=== PATIENT | female | born 1970 | race Asian ===

== ENCOUNTER 2017-08-27 09:47 | Emergency (ER) | payer OTHER | END 2017-08-27 11:15 | disposition home or self-care (01) | LOC: E/R 09:47 | DX: R19.7 Diarrhea, unspecified (principal); R05 Cough; I10 Essential (primary) hypertension; E11.9 Type 2 diabetes mellitus without complications; Z79.84 Long term (current) use of oral hypoglycemic drugs | CPT/HCPCS: 99284; Z7502 ==

== ENCOUNTER 2018-01-15 08:54 | Emergency (ER) | payer OTHER ==
[2018-01-15 09:49] LABS: ADD MAN DIFF? NO
[2018-01-15 09:50] LABS: BASOPHILS % 0.2 % (0.0-2.0); EOSINOPHILS # 0.3 10^3/ul (0.0-0.5); EOSINOPHILS % 2.3 % (0.0-7.0); HEMATOCRIT 35.1 % (37.0-47.0); HEMOGLOBIN 11.6 g/dl (12.0-16.0); LYMPHOCYTES # 3.7 10^3/ul (0.8-2.9); LYMPHOCYTES % 33.7 % (15.0-51.0); MEAN CORPUSCULAR HEMOGLOBIN 27.2 pg (29.0-33.0); MEAN CORPUSCULAR VOLUME 82.4 fl (82.0-101.0); MEAN PLATELET VOLUME 12.2 fl (7.4-10.4); MONOCYTE # 0.9 10^3/ul (0.3-0.9); MONOCYTES % 8.2 % (0.0-11.0); NEUTROPHIL # 6.1 10^3/ul (1.6-7.5); NEUTROPHILS % 55.2 % (39.0-77.0); PLATELET COUNT 297 10^3/UL (140-415); RED BLOOD COUNT 4.26 10^6/ul (4.20-5.40); RED CELL DISTRIBUTION WIDTH 13.9 % (11.5-14.5)
[2018-01-15] MEDS: SOD CHLORIDE 0.9% 1,000 ML IV (09:51)
[2018-01-15 09:58] LABS: ADD UMIC NO; UR ASCORBIC ACID NEGATIVE (NEGATIVE); UR BILIRUBIN (Dip) NEGATIVE (NEGATIVE); UR BLOOD (Dip) NEGATIVE (NEGATIVE); UR CLARITY CLEAR (CLEAR); UR COLOR STRAW (YELLOW); UR GLUCOSE (Dip) NEGATIVE (NEGATIVE); UR KETONES (Dip) NEGATIVE (NEGATIVE); UR LEUKOCYTE ESTERASE (Dip) NEGATIVE Leu/ul (NEGATIVE); UR NITRITE (Dip) NEGATIVE (NEGATIVE); UR SPECIFIC GRAVITY (Dip) 1.004 (1.003-1.030); UR TOTAL PROTEIN (Dip) NEGATIVE (NEGATIVE); UR UROBILINOGEN (Dip) NEGATIVE (NEGATIVE)
[2018-01-15 10:13] LABS: ALANINE AMINOTRANSFERASE 19 IU/L (13-69); ALBUMIN 4.3 g/dl (3.3-4.9); ALBUMIN/GLOBULIN RATIO 1.26; ALKALINE PHOSPHATASE 109 IU/L (42-121); ANION GAP 16 (8-16); ASPARTATE AMINO TRANSFERASE 23 IU/L (15-46); BILIRUBIN,INDIRECT 0.5 mg/dl (0-1.1); BILIRUBIN,TOTAL 0.5 mg/dl (0.2-1.3); BLOOD UREA NITROGEN 14 mg/dl (7-20); CALCIUM 9.3 mg/dl (8.4-10.2); CARBON DIOXIDE 26 mmol/L (21-31); CHLORIDE 95 mmol/L (97-110); CREATININE 0.79 mg/dl (0.44-1.00); GLUCOSE 164 mg/dl (70-220); LIPASE 103 U/L (23-300); POTASSIUM 3.9 mmol/L (3.5-5.1); SODIUM 133 mmol/L (135-144); TOTAL PROTEIN 7.7 g/dl (6.1-8.1)
[2018-01-15] MEDS: KETOROLAC 30 MG INJ IV (10:18)
[2018-01-15] MEDS: morphine 4 MG/ML VIAL IV (11:56)
[2018-01-15] MEDS: ONDANSETRON 4 MG INJ IV (11:56)
== END 2018-01-15 12:16 | disposition home or self-care (01) ==
LOC: FTE 08:54
DX: R10.9 Unspecified abdominal pain (principal); E11.9 Type 2 diabetes mellitus without complications; I10 Essential (primary) hypertension; R10.2 Pelvic and perineal pain; Z79.4 Long term (current) use of insulin
CPT/HCPCS: 36415; 74176; 80053; 81003; 83690; 84703; 85025; 96374; 96375; 99285-25

== ENCOUNTER 2018-08-10 10:46 | Emergency (ER) | payer OTHER ==
[2018-08-10 12:33] LABS: ADD MAN DIFF? NO
[2018-08-10 12:34] LABS: WHITE BLOOD COUNT 10.6 10^3/ul (4.8-10.8)
[2018-08-10 12:34] LABS: BASOPHILS % 0.2 % (0.0-2.0); EOSINOPHILS # 0.2 10^3/ul (0.0-0.5); EOSINOPHILS % 1.8 % (0.0-7.0); HEMATOCRIT 36.3 % (37.0-47.0); HEMOGLOBIN 11.7 g/dl (12.0-16.0); LYMPHOCYTES % 28.4 % (15.0-51.0); MEAN CORPUSCULAR HEMOGLOBIN 26.7 pg (29.0-33.0); MEAN CORPUSCULAR HGB CONC 32.2 g/dl (32.0-37.0); MEAN CORPUSCULAR VOLUME 82.9 fl (82.0-101.0); MEAN PLATELET VOLUME 11.7 fl (7.4-10.4); MONOCYTE # 0.7 10^3/ul (0.3-0.9); MONOCYTES % 6.8 % (0.0-11.0); NEUTROPHIL # 6.6 10^3/ul (1.6-7.5); NEUTROPHILS % 62.5 % (39.0-77.0); PLATELET COUNT 332 10^3/UL (140-415); RED BLOOD COUNT 4.38 10^6/ul (4.20-5.40); RED CELL DISTRIBUTION WIDTH 13.2 % (11.5-14.5)
[2018-08-10] MEDS: ONDANSETRON 4 MG INJ IV (12:41)
[2018-08-10] MEDS: KETOROLAC 30 MG INJ IV (12:41)
[2018-08-10] MEDS: SOD CHLORIDE 0.9% 1,000 ML IV (12:42)
[2018-08-10 12:45] LABS: ADD UMIC YES; UR ASCORBIC ACID NEGATIVE (NEGATIVE); UR BACTERIA FEW /HPF (NONE SEEN); UR BILIRUBIN (Dip) NEGATIVE (NEGATIVE); UR BLOOD (Dip) NEGATIVE (NEGATIVE); UR CLARITY CLEAR (CLEAR); UR COLOR COLORLESS (YELLOW); UR GLUCOSE (Dip) NEGATIVE (NEGATIVE); UR KETONES (Dip) NEGATIVE (NEGATIVE); UR LEUKOCYTE ESTERASE (Dip) TRACE Leu/ul (NEGATIVE); UR NITRITE (Dip) NEGATIVE (NEGATIVE); UR RBC 0 /HPF (0-5); UR SPECIFIC GRAVITY (Dip) 1.004 (1.003-1.030); UR TOTAL PROTEIN (Dip) NEGATIVE (NEGATIVE); UR UROBILINOGEN (Dip) NEGATIVE (NEGATIVE); UR WBC 1 /HPF (0-5)
[2018-08-10 12:53] LABS: ALANINE AMINOTRANSFERASE 18 IU/L (13-69); ALBUMIN 4.5 g/dl (3.3-4.9); ALBUMIN/GLOBULIN RATIO 1.15; ALKALINE PHOSPHATASE 124 IU/L (42-121); ANION GAP 11 (5-13); ASPARTATE AMINO TRANSFERASE 19 IU/L (15-46); BILIRUBIN,INDIRECT 0.4 mg/dl (0-1.1); BILIRUBIN,TOTAL 0.4 mg/dl (0.2-1.3); BLOOD UREA NITROGEN 21 mg/dl (7-20); CALCIUM 10.4 mg/dl (8.4-10.2); CARBON DIOXIDE 32 mmol/L (21-31); CHLORIDE 94 mmol/L (97-110); CREATININE 1.01 mg/dl (0.44-1.00); Estimated GFR 59 mL/min (>60); GLUCOSE 168 mg/dl (70-220); POTASSIUM 3.7 mmol/L (3.5-5.1); SODIUM 137 mmol/L (135-144); TOTAL PROTEIN 8.4 g/dl (6.1-8.1)
== END 2018-08-10 13:52 | disposition home or self-care (01) ==
LOC: FTE 10:46
DX: R51 Headache (principal); E11.9 Type 2 diabetes mellitus without complications; I10 Essential (primary) hypertension; Z79.84 Long term (current) use of oral hypoglycemic drugs
CPT/HCPCS: 70450; 80053; 81001; 81025; 85025; 96374; 96375; 99285-25

== ENCOUNTER 2018-10-21 17:56 | Emergency (ER) | payer OTHER ==
[2018-10-21 20:06] LABS: URINE BLOOD (Dip) POC Negative (NEGATIVE); URINE GLUCOSE (Dip) POC Negative (NEGATIVE); URINE KETONES (Dip) POC Negative (NEGATIVE); URINE LEUKOCYTE EST (Dip) POC Negative (NEGATIVE); URINE NITRITE (Dip) POC Negative (NEGATIVE); URINE TOTAL PROTEIN POC Negative (NEGATIVE)
[2018-10-21 20:06] LABS: URINE PH (Dip) POC 5.5 (5.0-8.5)
[2018-10-21] MEDS: NICARDipine HCL 30 MG CAPSULE PO (20:27)
[2018-10-21 20:38] LABS: ADD MAN DIFF? NO
[2018-10-21 20:39] LABS: BASOPHILS % 0.2 % (0.0-2.0); EOSINOPHILS # 0.2 10^3/ul (0.0-0.5); EOSINOPHILS % 1.7 % (0.0-7.0); HEMATOCRIT 32.7 % (37.0-47.0); HEMOGLOBIN 10.8 g/dl (12.0-16.0); LYMPHOCYTES # 4.4 10^3/ul (0.8-2.9); LYMPHOCYTES % 34.3 % (15.0-51.0); MEAN CORPUSCULAR HEMOGLOBIN 26.8 pg (29.0-33.0); MEAN CORPUSCULAR VOLUME 81.1 fl (82.0-101.0); MEAN PLATELET VOLUME 12.3 fl (7.4-10.4); MONOCYTE # 0.8 10^3/ul (0.3-0.9); MONOCYTES % 6.6 % (0.0-11.0); NEUTROPHIL # 7.2 10^3/ul (1.6-7.5); PLATELET COUNT 295 10^3/UL (140-415); RED BLOOD COUNT 4.03 10^6/ul (4.20-5.40); RED CELL DISTRIBUTION WIDTH 13.1 % (11.5-14.5)
[2018-10-21 20:39] LABS: WHITE BLOOD COUNT 12.7 10^3/ul (4.8-10.8)
[2018-10-21 20:58] LABS: PROTIME 11.2 Sec (11.9-14.9); PT RATIO 0.9
[2018-10-21 20:59] LABS: ALANINE AMINOTRANSFERASE 16 IU/L (13-69); ALBUMIN 4.6 g/dl (3.3-4.9); ALBUMIN/GLOBULIN RATIO 1.27; ALKALINE PHOSPHATASE 118 IU/L (42-121); ANION GAP 11 (5-13); ASPARTATE AMINO TRANSFERASE 20 IU/L (15-46); BILIRUBIN,INDIRECT 0.3 mg/dl (0-1.1); BILIRUBIN,TOTAL 0.3 mg/dl (0.2-1.3); BLOOD UREA NITROGEN 21 mg/dl (7-20); CALCIUM 10.1 mg/dl (8.4-10.2); CARBON DIOXIDE 28 mmol/L (21-31); CHLORIDE 89 mmol/L (97-110); CREATININE 1.17 mg/dl (0.44-1.00); Estimated GFR 49 mL/min (>60); GLUCOSE 208 mg/dl (70-220); POTASSIUM 3.7 mmol/L (3.5-5.1); SODIUM 128 mmol/L (135-144); TOTAL PROTEIN 8.2 g/dl (6.1-8.1)
[2018-10-21 21:10] LABS: TROPONIN-I < 0.012 ng/ml (0.000-0.120)
[2018-10-21 22:05] LABS: ADD UMIC NO; UR ASCORBIC ACID NEGATIVE (NEGATIVE); UR BILIRUBIN (Dip) NEGATIVE (NEGATIVE); UR BLOOD (Dip) NEGATIVE (NEGATIVE); UR CLARITY CLEAR (CLEAR); UR COLOR YELLOW (YELLOW); UR GLUCOSE (Dip) 1+ mg/dL (NEGATIVE); UR KETONES (Dip) NEGATIVE (NEGATIVE); UR LEUKOCYTE ESTERASE (Dip) NEGATIVE Leu/ul (NEGATIVE); UR NITRITE (Dip) NEGATIVE (NEGATIVE); UR SPECIFIC GRAVITY (Dip) 1.011 (1.003-1.030); UR TOTAL PROTEIN (Dip) NEGATIVE (NEGATIVE); UR UROBILINOGEN (Dip) NEGATIVE (NEGATIVE)
[2018-10-21] MEDS: SOD CHLORIDE 0.9% 1,000 ML IV (22:25)
== END 2018-10-21 23:55 | disposition home or self-care (01) ==
LOC: FTE 23:55
DX: E86.0 Dehydration (principal); I10 Essential (primary) hypertension; E11.9 Type 2 diabetes mellitus without complications; Z79.84 Long term (current) use of oral hypoglycemic drugs
CPT/HCPCS: 36415; 71046; 80053; 81003; 84484; 84703; 85025; 85610; 85730; 93005; 96360; 99285-25

== ENCOUNTER 2018-11-19 22:49 | Inpatient (IN) | payer OTHER ==
[2018-11-19 23:54] LABS: URINE BLOOD (Dip) POC Negative (NEGATIVE); URINE KETONES (Dip) POC Negative (NEGATIVE); URINE LEUKOCYTE EST (Dip) POC Negative (NEGATIVE); URINE NITRITE (Dip) POC Negative (NEGATIVE); URINE TOTAL PROTEIN POC Negative (NEGATIVE)
[2018-11-19] MEDS: PANTOPRAZOLE 40 MG INJ IV (23:54)
[2018-11-19 23:56] LABS: ADD MAN DIFF? NO
[2018-11-20] LABS: BASOPHILS % 0.2 % (0.0-2.0); EOSINOPHILS # 0.2 10^3/ul (0.0-0.5); EOSINOPHILS % 1.3 % (0.0-7.0); HEMATOCRIT 32.8 % (37.0-47.0); HEMOGLOBIN 10.6 g/dl (12.0-16.0); LYMPHOCYTES # 3.6 10^3/ul (0.8-2.9); LYMPHOCYTES % 30.2 % (15.0-51.0); MEAN CORPUSCULAR HEMOGLOBIN 26.6 pg (29.0-33.0); MEAN CORPUSCULAR HGB CONC 32.3 g/dl (32.0-37.0); MEAN CORPUSCULAR VOLUME 82.4 fl (82.0-101.0); MEAN PLATELET VOLUME 11.5 fl (7.4-10.4); MONOCYTES % 8.5 % (0.0-11.0); NEUTROPHILS % 59.5 % (39.0-77.0); PLATELET COUNT 364 10^3/UL (140-415); RED BLOOD COUNT 3.98 10^6/ul (4.20-5.40); RED CELL DISTRIBUTION WIDTH 13.4 % (11.5-14.5)
[2018-11-20] LABS: WHITE BLOOD COUNT 11.8 10^3/ul (4.8-10.8)
[2018-11-20 00:26] LABS: ANION GAP 12 (5-13); BLOOD UREA NITROGEN 26 mg/dl (7-20); CALCIUM 10.2 mg/dl (8.4-10.2); CARBON DIOXIDE 27 mmol/L (21-31); CHLORIDE 94 mmol/L (97-110); CREATININE 1.17 mg/dl (0.44-1.00); Estimated GFR 49 mL/min (>60); POTASSIUM 3.8 mmol/L (3.5-5.1); SODIUM 133 mmol/L (135-144)
[2018-11-20 00:30] LABS: GLUCOSE 447 mg/dl (70-220)
[2018-11-20] MEDS: ASPIRIN 81 MG TAB PO ×2 (01:06→08:34)
[2018-11-20] MEDS: NITROGLYCERIN 2% 1 GM OINT PKT TD (01:06)
[2018-11-20] MEDS: SOD CHLORIDE 0.9% 1,000 ML IV ×2 (01:07→03:18)
[2018-11-20] MEDS: IOHEXOL 100 ML (02:14)
[2018-11-20] MEDS: SOD CHLORIDE 0.9% 100 ML (02:14)
[2018-11-20] MEDS ORDERED: GLUCAGON 1 MG INJ IM (02:36)
[2018-11-20] MEDS ORDERED: GLUCOSE GEL 15 GRAM TUBE BUCCAL (02:36)
[2018-11-20] MEDS ORDERED: GLUCOSE GEL 15 GRAM TUBE PO ×2 (02:36)
[2018-11-20] MEDS ORDERED: DEXTROSE 50% 50 ML SYRINGE IV ×2 (02:36)
[2018-11-20] MEDS: ATORVASTATIN 80 MG TAB PO ×2 (02:56→20:50)
[2018-11-20] MEDS: LISINOPRIL 20 MG TAB PO ×2 (02:57→08:36)
[2018-11-20] MEDS: INSULIN GLARGINE [LANTus] (100 UNITS/ML) SYG SC ×2 (03:02→21:06)
[2018-11-20] MEDS ORDERED: NACL 0.9% 3 ML SYG IV (03:30)
[2018-11-20] MEDS ORDERED: morphine 2 MG INJ IV (03:30)
[2018-11-20] MEDS ORDERED: ONDANSETRON 4 MG INJ IV (03:30)
[2018-11-20] MEDS ORDERED: NITROGLYCERIN (SL) 0.4 MG TAB SL (03:30)
[2018-11-20] MEDS ORDERED: ACETAMINOPHEN 325 MG TAB PO (03:30)
[2018-11-20 03:39] LABS: INR 0.84; PROTIME 11.6 Sec (11.9-14.9); PT RATIO 0.9
[2018-11-20 03:40] LABS: PARTIAL THROMBOPLASTIN TIME 28.1 Sec (23.0-35.0)
[2018-11-20 03:59] LABS: CREATINE KINASE 63 IU/L (23-200)
[2018-11-20 04:12] LABS: CK INDEX 2.7; CK-MB 1.73 ng/ml (0.0-2.4)
[2018-11-20 04:13] LABS: TROPONIN-I 0.312 ng/ml (0.000-0.120)
[2018-11-20] MEDS: INSULIN ASPART [NOVOLOG] 3 ML PEN SC ×5 (05:00→21:05)
[2018-11-20] MEDS: HEPARIN 1000 UNITS/ML 10 ML INJ IV (06:15)
[2018-11-20] MEDS: HEPARIN 25000 UNITS/250 ML 250 ML IV ×2 (06:17→13:59)
[2018-11-20 07:32] LABS: ADD MAN DIFF? NO
[2018-11-20 07:37] LABS: WHITE BLOOD COUNT 8.5 10^3/ul (4.8-10.8)
[2018-11-20 07:37] LABS: BASOPHILS % 0.1 % (0.0-2.0); EOSINOPHILS # 0.1 10^3/ul (0.0-0.5); EOSINOPHILS % 1.2 % (0.0-7.0); HEMATOCRIT 32.2 % (37.0-47.0); HEMOGLOBIN 10.3 g/dl (12.0-16.0); LYMPHOCYTES # 3.3 10^3/ul (0.8-2.9); LYMPHOCYTES % 38.5 % (15.0-51.0); MEAN CORPUSCULAR HEMOGLOBIN 26.3 pg (29.0-33.0); MEAN CORPUSCULAR VOLUME 82.1 fl (82.0-101.0); MEAN PLATELET VOLUME 11.7 fl (7.4-10.4); MONOCYTE # 0.8 10^3/ul (0.3-0.9); MONOCYTES % 8.9 % (0.0-11.0); NEUTROPHIL # 4.3 10^3/ul (1.6-7.5); NEUTROPHILS % 51.1 % (39.0-77.0); PLATELET COUNT 380 10^3/UL (140-415); RED BLOOD COUNT 3.92 10^6/ul (4.20-5.40); RED CELL DISTRIBUTION WIDTH 13.7 % (11.5-14.5)
[2018-11-20 07:45] LABS: HEMOGLOBIN A1C 9.7 % (0-5.9)
[2018-11-20 07:58] LABS: ALANINE AMINOTRANSFERASE 29 IU/L (13-69); ALBUMIN 4.2 g/dl (3.3-4.9); ALBUMIN/GLOBULIN RATIO 1.13; ALKALINE PHOSPHATASE 164 IU/L (42-121); ANION GAP 13 (5-13); ASPARTATE AMINO TRANSFERASE 19 IU/L (15-46); BILIRUBIN,INDIRECT 0.7 mg/dl (0-1.1); BILIRUBIN,TOTAL 0.7 mg/dl (0.2-1.3); BLOOD UREA NITROGEN 22 mg/dl (7-20); CALCIUM 10.2 mg/dl (8.4-10.2); CARBON DIOXIDE 28 mmol/L (21-31); CHLORIDE 101 mmol/L (97-110); CHOL/HDL RATIO 2.2 RATIO; CHOLESTEROL 103 mg/dl (100-200); CREATININE 1.07 mg/dl (0.44-1.00); Estimated GFR 55 mL/min (>60); GLUCOSE 326 mg/dl (70-220); HDL CHOLESTEROL 45 mg/dl (34-88); LDL CHOLESTEROL,CALCULATED 46 mg/dl; MAGNESIUM 2.1 mg/dl (1.7-2.5); POTASSIUM 3.7 mmol/L (3.5-5.1); SODIUM 142 mmol/L (135-144); TOTAL PROTEIN 7.9 g/dl (6.1-8.1); TRIGLYCERIDES 60 mg/dl (0-149)
[2018-11-20 08:00] LABS: CREATINE KINASE 62 IU/L (23-200)
[2018-11-20 08:08] LABS: CK INDEX 3.8; CK-MB 2.35 ng/ml (0.0-2.4)
[2018-11-20 08:11] LABS: TROPONIN-I 0.591 ng/ml (0.000-0.120)
[2018-11-20] MEDS: HYDROCHLOROTHIAZIDE 12.5 MG CAP PO (08:35)
[2018-11-20] MEDS: ATENOLOL 50 MG TAB PO (08:36)
[2018-11-20] MEDS: PANTOPRAZOLE (EC) 40 MG TAB PO ×2 (08:36→20:50)
[2018-11-20 08:56] LABS: THYROID STIMULATING HORMONE 0.036 MIU/L (0.465-4.680)
[2018-11-20] MEDS ORDERED: NON-FORMULARY/PATIENT OWN MED (Omeprazole* 20 MG) PO (09:00)
[2018-11-20] MEDS ORDERED: HEPARIN 1000 UNITS/ML 10 ML INJ IV (09:30)
[2018-11-20] MEDS: SUCRALFATE 1 GM TAB PO ×4 (11:28→21:06)
[2018-11-20] MEDS: ATENOLOL 25 MG TAB PO (11:34)
[2018-11-20 12:56] LABS: CREATINE KINASE 56 IU/L (23-200)
[2018-11-20 12:58] LABS: PARTIAL THROMBOPLASTIN TIME 51.3 Sec (23.0-35.0)
[2018-11-20 13:09] LABS: CK INDEX 3.3; CK-MB 1.87 ng/ml (0.0-2.4)
[2018-11-20 13:11] LABS: TROPONIN-I 0.627 ng/ml (0.000-0.120)
[2018-11-20 13:50] LABS: T4 (THYROXINE) 13.6 ug/dl (5.5-11.0)
[2018-11-20 13:51] LABS: FREE T4 (FREE THYROXINE) 2.67 ng/dl (0.64-1.79)
[2018-11-20 14:04] LABS: TRIIODOTHYRONINE 1.97 ng/ml (0.97-1.69)
[2018-11-20 14:50] LABS: THYROID STIMULATING HORMONE 0.029 MIU/L (0.465-4.680)
[2018-11-20 17:34] LABS: FREE T3 9.53 pg/ml (2.77-5.27)
[2018-11-20 20:18] LABS: PARTIAL THROMBOPLASTIN TIME 56.7 Sec (23.0-35.0)
[2018-11-20] MEDS ORDERED: INSULIN GLARGINE [LANTus] (100 UNITS/ML) SYG SC (21:00)
[2018-11-21] MEDS: INSULIN ASPART [NOVOLOG] 3 ML PEN SC ×6 (01:28→21:58)
[2018-11-21] MEDS: HEPARIN 25000 UNITS/250 ML 250 ML IV ×4 (01:29→23:27)
[2018-11-21] MEDS ORDERED: ACCU-CHEK XX (02:00)
[2018-11-21 03:29] LABS: ADD MAN DIFF? NO
[2018-11-21 03:52] LABS: PARTIAL THROMBOPLASTIN TIME 69.7 Sec (23.0-35.0)
[2018-11-21 04:01] LABS: BASOPHILS % 0.3 % (0.0-2.0); EOSINOPHILS # 0.2 10^3/ul (0.0-0.5); EOSINOPHILS % 2.1 % (0.0-7.0); HEMATOCRIT 30.5 % (37.0-47.0); LYMPHOCYTES # 4.3 10^3/ul (0.8-2.9); LYMPHOCYTES % 47.9 % (15.0-51.0); MEAN CORPUSCULAR HEMOGLOBIN 26.9 pg (29.0-33.0); MEAN CORPUSCULAR HGB CONC 32.8 g/dl (32.0-37.0); MEAN PLATELET VOLUME 11.6 fl (7.4-10.4); MONOCYTE # 0.8 10^3/ul (0.3-0.9); MONOCYTES % 8.7 % (0.0-11.0); NEUTROPHIL # 3.7 10^3/ul (1.6-7.5); NEUTROPHILS % 40.7 % (39.0-77.0); PLATELET COUNT 349 10^3/UL (140-415); RED BLOOD COUNT 3.72 10^6/ul (4.20-5.40); RED CELL DISTRIBUTION WIDTH 13.3 % (11.5-14.5)
[2018-11-21 04:17] LABS: ALANINE AMINOTRANSFERASE 26 IU/L (13-69); ALBUMIN 3.9 g/dl (3.3-4.9); ALBUMIN/GLOBULIN RATIO 1.08; ALKALINE PHOSPHATASE 113 IU/L (42-121); ANION GAP 14 (5-13); ASPARTATE AMINO TRANSFERASE 18 IU/L (15-46); BILIRUBIN,INDIRECT 0.8 mg/dl (0-1.1); BILIRUBIN,TOTAL 0.8 mg/dl (0.2-1.3); BLOOD UREA NITROGEN 20 mg/dl (7-20); CALCIUM 9.6 mg/dl (8.4-10.2); CARBON DIOXIDE 27 mmol/L (21-31); CHLORIDE 97 mmol/L (97-110); CREATININE 1.04 mg/dl (0.44-1.00); Estimated GFR 57 mL/min (>60); GLUCOSE 196 mg/dl (70-220); POTASSIUM 3.5 mmol/L (3.5-5.1); SODIUM 138 mmol/L (135-144); TOTAL PROTEIN 7.5 g/dl (6.1-8.1)
[2018-11-21] MEDS: Insulin NOVOLOG SS MILD Algorithm (SS with meals and bedtime) SC ×2 (07:55→12:04)
[2018-11-21] MEDS ORDERED: INSULIN ASPART [NOVOLOG] 3 ML PEN SC (07:55)
[2018-11-21] MEDS: PANTOPRAZOLE (EC) 40 MG TAB PO ×2 (08:25→21:10)
[2018-11-21] MEDS: ASPIRIN 81 MG TAB PO (08:25)
[2018-11-21] MEDS: SUCRALFATE 1 GM TAB PO ×4 (08:25→21:10)
[2018-11-21] MEDS ORDERED: ATENOLOL 100 MG TAB PO (09:00)
[2018-11-21 10:36] LABS: PARTIAL THROMBOPLASTIN TIME 75.1 Sec (23.0-35.0)
[2018-11-21] MEDS: AMLODIPINE 5 MG TAB PO (11:57)
[2018-11-21] MEDS: METHIMAZOLE 5 MG TAB PO (13:05)
[2018-11-21] MEDS: hydrALAzine 20 MG INJ IV (16:42)
[2018-11-21] MEDS: ATORVASTATIN 80 MG TAB PO (21:10)
[2018-11-21] MEDS: INSULIN GLARGINE [LANTus] (100 UNITS/ML) SYG SC (21:22)
[2018-11-21] MEDS: ACCU-CHEK XX (22:00)
[2018-11-22 02:40] LABS: PARTIAL THROMBOPLASTIN TIME 61.1 Sec (23.0-35.0)
[2018-11-22 06:06] LABS: ADD MAN DIFF? NO
[2018-11-22 06:12] LABS: BASOPHILS % 0.2 % (0.0-2.0); EOSINOPHILS # 0.2 10^3/ul (0.0-0.5); EOSINOPHILS % 1.7 % (0.0-7.0); HEMATOCRIT 32.3 % (37.0-47.0); HEMOGLOBIN 10.6 g/dl (12.0-16.0); LYMPHOCYTES # 3.5 10^3/ul (0.8-2.9); LYMPHOCYTES % 37.4 % (15.0-51.0); MEAN CORPUSCULAR HEMOGLOBIN 26.7 pg (29.0-33.0); MEAN CORPUSCULAR HGB CONC 32.8 g/dl (32.0-37.0); MEAN CORPUSCULAR VOLUME 81.4 fl (82.0-101.0); MEAN PLATELET VOLUME 11.5 fl (7.4-10.4); MONOCYTE # 0.9 10^3/ul (0.3-0.9); MONOCYTES % 9.7 % (0.0-11.0); NEUTROPHIL # 4.7 10^3/ul (1.6-7.5); NEUTROPHILS % 50.7 % (39.0-77.0); PLATELET COUNT 341 10^3/UL (140-415); RED BLOOD COUNT 3.97 10^6/ul (4.20-5.40); RED CELL DISTRIBUTION WIDTH 13.2 % (11.5-14.5)
[2018-11-22 06:12] LABS: WHITE BLOOD COUNT 9.4 10^3/ul (4.8-10.8)
[2018-11-22 06:29] LABS: ALANINE AMINOTRANSFERASE 27 IU/L (13-69); ALBUMIN 3.9 g/dl (3.3-4.9); ALBUMIN/GLOBULIN RATIO 1.08; ALKALINE PHOSPHATASE 128 IU/L (42-121); ANION GAP 11 (5-13); ASPARTATE AMINO TRANSFERASE 15 IU/L (15-46); BILIRUBIN,INDIRECT 0.8 mg/dl (0-1.1); BILIRUBIN,TOTAL 0.8 mg/dl (0.2-1.3); BLOOD UREA NITROGEN 25 mg/dl (7-20); CALCIUM 9.7 mg/dl (8.4-10.2); CARBON DIOXIDE 27 mmol/L (21-31); CHLORIDE 98 mmol/L (97-110); CREATININE 1.08 mg/dl (0.44-1.00); Estimated GFR 54 mL/min (>60); GLUCOSE 282 mg/dl (70-220); POTASSIUM 3.4 mmol/L (3.5-5.1); SODIUM 136 mmol/L (135-144); TOTAL PROTEIN 7.5 g/dl (6.1-8.1)
[2018-11-22] MEDS: ASPIRIN 81 MG TAB PO (08:08)
[2018-11-22] MEDS: SUCRALFATE 1 GM TAB PO ×4 (08:08→21:11)
[2018-11-22] MEDS: AMLODIPINE 5 MG TAB PO (08:08)
[2018-11-22] MEDS: POTASSIUM CHLORIDE 20 MEQ POWDER FOR ORAL SOLN PO (08:09)
[2018-11-22] MEDS: PANTOPRAZOLE (EC) 40 MG TAB PO ×2 (08:09→21:09)
[2018-11-22] MEDS: INSULIN ASPART [NOVOLOG] 3 ML PEN SC ×4 (08:14→21:17)
[2018-11-22] MEDS: METHIMAZOLE 5 MG TAB PO (08:17)
[2018-11-22] MEDS ORDERED: BIVALIRUDIN 250 MG/50 ML NS BAG IVPB (10:30)
[2018-11-22] MEDS ORDERED: NITROGLYCERIN (IC) 100 MCG/ML INJ (10:35)
[2018-11-22] MEDS ORDERED: MIDAZOLAM 1 MG/ML 2 ML INJ (10:35)
[2018-11-22] MEDS ORDERED: HEPARIN 1000 UNITS/ML 10 ML INJ (10:35)
[2018-11-22] MEDS ORDERED: FENTAnyl 50 MCG/ML VIAL (10:35)
[2018-11-22] MEDS ORDERED: VERAPAMIL 5 MG INJ (10:35)
[2018-11-22] MEDS ORDERED: LIDOCAINE 1% (MDV) 20 ML INJ (10:35)
[2018-11-22] MEDS ORDERED: IODIXANOL LOCM 100 ML BTL ×2 (10:35→12:21)
[2018-11-22] MEDS ORDERED: DIPHENHYDRAMINE 50 MG INJ (11:00)
[2018-11-22] MEDS ORDERED: TICAGRELOR 90 MG TABLET (11:19)
[2018-11-22] MEDS ORDERED: ASPIRIN 325 MG TAB (11:19)
[2018-11-22] MEDS: ISOSORBIDE MONONITRATE(SR)60 MG TAB PO (13:00)
[2018-11-22] MEDS: SOD CHLORIDE 0.9% 1,000 ML IV (15:06)
[2018-11-22] MEDS: ATORVASTATIN 80 MG TAB PO (21:12)
[2018-11-22] MEDS: glyBURIDE 5 MG TAB PO (21:12)
[2018-11-22] MEDS: TICAGRELOR 90 MG TABLET PO (21:14)
[2018-11-22] MEDS: INSULIN GLARGINE [LANTus] (100 UNITS/ML) SYG SC (21:15)
[2018-11-23 05:24] LABS: ADD MAN DIFF? NO
[2018-11-23 05:28] LABS: WHITE BLOOD COUNT 7.9 10^3/ul (4.8-10.8)
[2018-11-23 05:28] LABS: BASOPHILS % 0.3 % (0.0-2.0); EOSINOPHILS # 0.1 10^3/ul (0.0-0.5); EOSINOPHILS % 1.8 % (0.0-7.0); HEMATOCRIT 30.5 % (37.0-47.0); HEMOGLOBIN 9.8 g/dl (12.0-16.0); LYMPHOCYTES # 2.3 10^3/ul (0.8-2.9); LYMPHOCYTES % 28.8 % (15.0-51.0); MEAN CORPUSCULAR HEMOGLOBIN 26.3 pg (29.0-33.0); MEAN CORPUSCULAR HGB CONC 32.1 g/dl (32.0-37.0); MEAN PLATELET VOLUME 11.5 fl (7.4-10.4); MONOCYTE # 0.9 10^3/ul (0.3-0.9); MONOCYTES % 11.3 % (0.0-11.0); NEUTROPHIL # 4.5 10^3/ul (1.6-7.5); NEUTROPHILS % 57.5 % (39.0-77.0); PLATELET COUNT 347 10^3/UL (140-415); RED BLOOD COUNT 3.72 10^6/ul (4.20-5.40); RED CELL DISTRIBUTION WIDTH 13.4 % (11.5-14.5)
[2018-11-23 06:00] LABS: ALANINE AMINOTRANSFERASE 24 IU/L (13-69); ALBUMIN 3.6 g/dl (3.3-4.9); ALBUMIN/GLOBULIN RATIO 1.05; ALKALINE PHOSPHATASE 108 IU/L (42-121); ANION GAP 8 (5-13); ASPARTATE AMINO TRANSFERASE 15 IU/L (15-46); BILIRUBIN,INDIRECT 0.8 mg/dl (0-1.1); BILIRUBIN,TOTAL 0.8 mg/dl (0.2-1.3); BLOOD UREA NITROGEN 19 mg/dl (7-20); CALCIUM 9.2 mg/dl (8.4-10.2); CARBON DIOXIDE 26 mmol/L (21-31); CHLORIDE 108 mmol/L (97-110); CREATININE 0.96 mg/dl (0.44-1.00); Estimated GFR > 60 mL/min (>60); GLUCOSE 155 mg/dl (70-220); POTASSIUM 3.7 mmol/L (3.5-5.1); SODIUM 142 mmol/L (135-144)
[2018-11-23] MEDS: INSULIN ASPART [NOVOLOG] 3 ML PEN SC ×4 (07:35→21:00)
[2018-11-23] MEDS: glyBURIDE 5 MG TAB PO ×2 (08:48→21:08)
[2018-11-23] MEDS: PANTOPRAZOLE (EC) 40 MG TAB PO ×2 (08:49→21:08)
[2018-11-23] MEDS: AMLODIPINE 10 MG TAB PO (08:49)
[2018-11-23] MEDS: ASPIRIN 81 MG TAB PO (08:50)
[2018-11-23] MEDS: SUCRALFATE 1 GM TAB PO ×4 (08:50→21:08)
[2018-11-23] MEDS: METHIMAZOLE 5 MG TAB PO (08:50)
[2018-11-23] MEDS: ISOSORBIDE MONONITRATE(SR)60 MG TAB PO (08:50)
[2018-11-23] MEDS: TICAGRELOR 90 MG TABLET PO ×2 (08:50→21:07)
[2018-11-23] MEDS ORDERED: FENTAnyl 50 MCG/ML VIAL (13:20)
[2018-11-23] MEDS ORDERED: MIDAZOLAM 1 MG/ML 2 ML INJ (13:20)
[2018-11-23] MEDS ORDERED: LIDOCAINE 1% (MDV) 20 ML INJ (13:20)
[2018-11-23] MEDS ORDERED: NITROGLYCERIN (IC) 100 MCG/ML INJ (13:47)
[2018-11-23] MEDS ORDERED: BIVALIRUDIN 250MG /NS 50 ML 50 ML IVPB (14:40)
[2018-11-23] MEDS: SOD CHLORIDE 0.9% 1,000 ML IV (14:50)
[2018-11-23] MEDS: INSULIN GLARGINE [LANTus] (100 UNITS/ML) SYG SC (21:08)
[2018-11-23] MEDS: ATORVASTATIN 80 MG TAB PO (21:09)
[2018-11-24 05:24] LABS: ADD MAN DIFF? NO
[2018-11-24 05:29] LABS: BASOPHILS % 0.1 % (0.0-2.0); EOSINOPHILS # 0.3 10^3/ul (0.0-0.5); EOSINOPHILS % 3.3 % (0.0-7.0); HEMATOCRIT 28.7 % (37.0-47.0); HEMOGLOBIN 9.2 g/dl (12.0-16.0); LYMPHOCYTES # 2.6 10^3/ul (0.8-2.9); LYMPHOCYTES % 29.8 % (15.0-51.0); MEAN CORPUSCULAR HEMOGLOBIN 26.7 pg (29.0-33.0); MEAN CORPUSCULAR HGB CONC 32.1 g/dl (32.0-37.0); MEAN CORPUSCULAR VOLUME 83.4 fl (82.0-101.0); MEAN PLATELET VOLUME 11.6 fl (7.4-10.4); MONOCYTE # 0.8 10^3/ul (0.3-0.9); MONOCYTES % 9.4 % (0.0-11.0); NEUTROPHIL # 5.1 10^3/ul (1.6-7.5); NEUTROPHILS % 57.3 % (39.0-77.0); PLATELET COUNT 307 10^3/UL (140-415); RED BLOOD COUNT 3.44 10^6/ul (4.20-5.40); RED CELL DISTRIBUTION WIDTH 13.6 % (11.5-14.5)
[2018-11-24 05:29] LABS: WHITE BLOOD COUNT 8.9 10^3/ul (4.8-10.8)
[2018-11-24 06:06] LABS: ANION GAP 9 (5-13); BLOOD UREA NITROGEN 19 mg/dl (7-20); CALCIUM 9.4 mg/dl (8.4-10.2); CARBON DIOXIDE 24 mmol/L (21-31); CHLORIDE 109 mmol/L (97-110); CREATININE 1.08 mg/dl (0.44-1.00); Estimated GFR 54 mL/min (>60); GLUCOSE 65 mg/dl (70-220); POTASSIUM 3.4 mmol/L (3.5-5.1); SODIUM 142 mmol/L (135-144)
[2018-11-24] MEDS: INSULIN ASPART [NOVOLOG] 3 ML PEN SC ×2 (07:35→12:12)
[2018-11-24] MEDS: SUCRALFATE 1 GM TAB PO (08:38)
[2018-11-24] MEDS: ASPIRIN 81 MG TAB PO (08:38)
[2018-11-24] MEDS: AMLODIPINE 10 MG TAB PO (08:39)
[2018-11-24] MEDS: PANTOPRAZOLE (EC) 40 MG TAB PO (08:39)
[2018-11-24] MEDS: ISOSORBIDE MONONITRATE(SR)60 MG TAB PO (08:39)
[2018-11-24] MEDS: METHIMAZOLE 5 MG TAB PO (08:39)
[2018-11-24] MEDS: glyBURIDE 5 MG TAB PO (08:40)
[2018-11-24] MEDS: TICAGRELOR 90 MG TABLET PO (08:43)
[2018-11-24] MEDS: POTASSIUM CHLORIDE 20 MEQ POWDER FOR ORAL SOLN PO (09:20)
[2018-11-24] MEDS: LISINOPRIL 5 MG TAB PO (10:00)
== END 2018-11-24 14:47 | disposition home or self-care (01) | DRG 247 ==
LOC: E/R 22:49 → ICU 11-22 12:30 → TEL 11-20 01:49
PROC: 027034Z Dilation of Coronary Artery, One Artery with Drug-eluting Intraluminal Device, Percutaneous Approach (ICD-10-PCS; principal; 2018-11-22 10:22)
PROC: 02703ZZ Dilation of Coronary Artery, One Artery, Percutaneous Approach (ICD-10-PCS; 2018-11-22 10:22)
PROC: 4A023N7 Measurement of Cardiac Sampling and Pressure, Left Heart, Percutaneous Approach (ICD-10-PCS; 2018-11-22 10:22)
PROC: B211YZZ Fluoroscopy of Multiple Coronary Arteries using Other Contrast (ICD-10-PCS; 2018-11-22 10:22)
DX: I21.4 Non-ST elevation (NSTEMI) myocardial infarction (principal); N17.9 Acute kidney failure, unspecified; E11.65 Type 2 diabetes mellitus with hyperglycemia; I10 Essential (primary) hypertension; I25.10 Atherosclerotic heart disease of native coronary artery without angina pectoris; Z68.31 Body mass index [BMI] 31.0-31.9, adult; E66.9 Obesity, unspecified; K21.9 Gastro-esophageal reflux disease without esophagitis; E78.5 Hyperlipidemia, unspecified; E05.90 Thyrotoxicosis, unspecified without thyrotoxic crisis or storm; Z79.4 Long term (current) use of insulin
CPT/HCPCS: 36415; 71045; 71275; 80048; 80053; 80061; 81003; 81025; 82306; 82550; 82553; 82962; 83036; 83735; 84100; 84436; 84439; 84443; 84480; 84481; 84484; 85025; 85610; 85730; 87081; 92920; 92928; 93005; 93306; 93458; 96374; 99285-25

== ENCOUNTER 2018-12-09 21:15 | Observation (INO) | payer OTHER ==
[2018-12-09 23:24] LABS: ADD MAN DIFF? NO
[2018-12-09 23:25] LABS: BASOPHILS % 0.3 % (0.0-2.0); EOSINOPHILS # 0.4 10^3/ul (0.0-0.5); EOSINOPHILS % 3.7 % (0.0-7.0); HEMATOCRIT 27.3 % (37.0-47.0); LYMPHOCYTES # 4.1 10^3/ul (0.8-2.9); LYMPHOCYTES % 43.3 % (15.0-51.0); MEAN CORPUSCULAR HEMOGLOBIN 27.1 pg (29.0-33.0); MEAN CORPUSCULAR VOLUME 82.2 fl (82.0-101.0); MEAN PLATELET VOLUME 10.7 fl (7.4-10.4); MONOCYTE # 0.8 10^3/ul (0.3-0.9); MONOCYTES % 8.8 % (0.0-11.0); NEUTROPHIL # 4.1 10^3/ul (1.6-7.5); NEUTROPHILS % 43.7 % (39.0-77.0); PLATELET COUNT 289 10^3/UL (140-415); RED BLOOD COUNT 3.32 10^6/ul (4.20-5.40); RED CELL DISTRIBUTION WIDTH 13.8 % (11.5-14.5)
[2018-12-09 23:25] LABS: WHITE BLOOD COUNT 9.4 10^3/ul (4.8-10.8)
[2018-12-09] MEDS ORDERED: ACETAMINOPHEN 325 MG TAB PO ×2 (23:30)
[2018-12-09] MEDS ORDERED: HYDROCODONE/APAP (5/325) TAB PO (23:30)
[2018-12-09] MEDS ORDERED: morphine 2 MG INJ IV (23:30)
[2018-12-09] MEDS ORDERED: NACL 0.9% 3 ML SYG IV (23:30)
[2018-12-09] MEDS ORDERED: NITROGLYCERIN (SL) 0.4 MG TAB SL (23:30)
[2018-12-09] MEDS ORDERED: ONDANSETRON 4 MG INJ IV ×2 (23:30)
[2018-12-09] MEDS ORDERED: LORAZEPAM 2 MG INJ IV (23:30)
[2018-12-09] MEDS ORDERED: MAGNESIUM HYDROXIDE 30ML CUP PO (23:30)
[2018-12-09] MEDS ORDERED: ALBUTEROL/IPRATROPIUM (NEB) 3 ML AMP HHN (23:30)
[2018-12-09] MEDS ORDERED: DOCUSATE SODIUM 100 MG CAP PO (23:30)
[2018-12-09 23:43] LABS: ANION GAP 10 (5-13); BLOOD UREA NITROGEN 19 mg/dl (7-20); CALCIUM 9.2 mg/dl (8.4-10.2); CARBON DIOXIDE 27 mmol/L (21-31); CHLORIDE 98 mmol/L (97-110); CREATININE 1.05 mg/dl (0.44-1.00); Estimated GFR 56 mL/min (>60); GLUCOSE 100 mg/dl (70-220); SODIUM 135 mmol/L (135-144)
[2018-12-09 23:44] LABS: INR 0.92; PARTIAL THROMBOPLASTIN TIME 25.7 Sec (23.0-35.0); PROTIME 12.5 Sec (11.9-14.9)
[2018-12-09] MEDS: SOD CHLORIDE 0.45% 1,000 ML IV (23:55)
[2018-12-10 00:39] LABS: CREATINE KINASE 35 IU/L (23-200)
[2018-12-10 00:49] LABS: CK INDEX 0.6; CK-MB < 0.22 ng/ml (0.0-2.4); TROPONIN-I < 0.012 ng/ml (0.000-0.120)
[2018-12-10] MEDS: INSULIN ASPART [NOVOLOG] 3 ML PEN SC ×6 (01:00→21:04)
[2018-12-10] MEDS: ACCU-CHEK XX (02:00)
[2018-12-10] MEDS: PANTOPRAZOLE (EC) 40 MG TAB PO (06:01)
[2018-12-10 07:19] LABS: ADD MAN DIFF? NO
[2018-12-10 07:29] LABS: WHITE BLOOD COUNT 9.5 10^3/ul (4.8-10.8)
[2018-12-10 07:29] LABS: BASOPHILS % 0.2 % (0.0-2.0); EOSINOPHILS # 0.3 10^3/ul (0.0-0.5); EOSINOPHILS % 3.5 % (0.0-7.0); HEMATOCRIT 28.8 % (37.0-47.0); HEMOGLOBIN 9.3 g/dl (12.0-16.0); LYMPHOCYTES # 3.4 10^3/ul (0.8-2.9); LYMPHOCYTES % 36.2 % (15.0-51.0); MEAN CORPUSCULAR HEMOGLOBIN 26.6 pg (29.0-33.0); MEAN CORPUSCULAR HGB CONC 32.3 g/dl (32.0-37.0); MEAN CORPUSCULAR VOLUME 82.3 fl (82.0-101.0); MEAN PLATELET VOLUME 11.5 fl (7.4-10.4); MONOCYTE # 0.6 10^3/ul (0.3-0.9); MONOCYTES % 6.7 % (0.0-11.0); NEUTROPHILS % 53.2 % (39.0-77.0); PLATELET COUNT 315 10^3/UL (140-415); RED CELL DISTRIBUTION WIDTH 13.9 % (11.5-14.5)
[2018-12-10] MEDS ORDERED: MIDAZOLAM 1 MG/ML 2 ML INJ (07:33)
[2018-12-10] MEDS ORDERED: HEPARIN 1000 UNITS/ML 10 ML INJ (07:33)
[2018-12-10] MEDS ORDERED: NITROGLYCERIN (IC) 100 MCG/ML INJ ×2 (07:33→08:40)
[2018-12-10] MEDS ORDERED: IODIXANOL LOCM 100 ML BTL (07:33)
[2018-12-10] MEDS ORDERED: VERAPAMIL 5 MG INJ (07:33)
[2018-12-10] MEDS ORDERED: IODIXANOL LOCM 50 ML BTL (07:33)
[2018-12-10] MEDS ORDERED: FENTAnyl 50 MCG/ML VIAL (07:33)
[2018-12-10 07:38] LABS: CHOL/HDL RATIO 2.3 RATIO; CREATINE KINASE 26 IU/L (23-200); HDL CHOLESTEROL 39 mg/dl (34-88); LDL CHOLESTEROL,CALCULATED 27 mg/dl; TRIGLYCERIDES 123 mg/dl (0-149)
[2018-12-10 07:38] LABS: CHOLESTEROL 91 mg/dl (100-200)
[2018-12-10 07:41] LABS: ANION GAP 10 (5-13); BLOOD UREA NITROGEN 15 mg/dl (7-20); CALCIUM 9.5 mg/dl (8.4-10.2); CARBON DIOXIDE 27 mmol/L (21-31); CHLORIDE 101 mmol/L (97-110); CREATININE 0.89 mg/dl (0.44-1.00); Estimated GFR > 60 mL/min (>60); GLUCOSE 168 mg/dl (70-220); MAGNESIUM 1.7 mg/dl (1.7-2.5); PHOSPHORUS 4.2 mg/dl (2.5-4.9); POTASSIUM 4.4 mmol/L (3.5-5.1); SODIUM 138 mmol/L (135-144)
[2018-12-10 07:48] LABS: CK INDEX 0.8; CK-MB < 0.22 ng/ml (0.0-2.4)
[2018-12-10 07:52] LABS: TROPONIN-I < 0.012 ng/ml (0.000-0.120)
[2018-12-10] MEDS: VERAPAMIL 4 MG, NITROGLYCERIN 4 MG, HEPARIN (10000 UNITS/ML) 20,000 UNIT, LIDOCAINE 2% ... IV (08:00)
[2018-12-10] MEDS ORDERED: ASPIRIN 325 MG TAB (08:23)
[2018-12-10] MEDS ORDERED: CLOPIDOGREL 300 MG TAB (08:23)
[2018-12-10] MEDS ORDERED: TICAGRELOR 90 MG TABLET PO (09:00)
[2018-12-10] MEDS ORDERED: NON-FORMULARY/PATIENT OWN MED (Omeprazole* 20 MG) PO (09:00)
[2018-12-10] MEDS ORDERED: ISOSORBIDE MONONITRATE(SR)60 MG TAB PO (09:00)
[2018-12-10] MEDS: HEPARIN 5,000 UNIT/1 ML VIAL SC ×2 (09:00→20:39)
[2018-12-10] MEDS: ASPIRIN 81 MG TAB PO (09:00)
[2018-12-10] MEDS ORDERED: EPTIFIBATIDE 30 ML (09:55)
[2018-12-10 13:18] LABS: INR 0.91; PROTIME 12.4 Sec (11.9-14.9)
[2018-12-10 13:20] LABS: PARTIAL THROMBOPLASTIN TIME 61.3 Sec (23.0-35.0)
[2018-12-10] MEDS: LORATADINE 10 MG TAB PO (13:48)
[2018-12-10] MEDS: LISINOPRIL 10 MG TAB PO (13:49)
[2018-12-10] MEDS: FLUTICASONE 0.05% 16 GM NAS SPRAY NASAL ×2 (13:49→20:41)
[2018-12-10] MEDS: SOD CHLORIDE 0.45% 1,000 ML IV (14:05)
[2018-12-10 16:44] LABS: INR 0.93; PROTIME 12.6 Sec (11.9-14.9)
[2018-12-10 16:45] LABS: PARTIAL THROMBOPLASTIN TIME 28.1 Sec (23.0-35.0)
[2018-12-10] MEDS ORDERED: INSULIN GLARGINE [LANTus] (100 UNITS/ML) SYG SC (20:00)
[2018-12-10] MEDS: ATORVASTATIN 80 MG TAB PO (20:40)
[2018-12-10] MEDS: hydrALAzine 20 MG INJ IV (20:41)
[2018-12-10] MEDS: INSULIN GLARGINE [LANTus] (100 UNITS/ML) SYG SC (21:03)
[2018-12-11] MEDS: ACCU-CHEK XX (01:35)
[2018-12-11] MEDS: SOD CHLORIDE 0.45% 1,000 ML IV (01:39)
[2018-12-11 05:36] LABS: ADD MAN DIFF? NO
[2018-12-11 05:37] LABS: WHITE BLOOD COUNT 10.7 10^3/ul (4.8-10.8)
[2018-12-11 05:37] LABS: BASOPHILS % 0.2 % (0.0-2.0); EOSINOPHILS # 0.3 10^3/ul (0.0-0.5); EOSINOPHILS % 2.9 % (0.0-7.0); HEMATOCRIT 30.5 % (37.0-47.0); HEMOGLOBIN 9.7 g/dl (12.0-16.0); LYMPHOCYTES # 2.3 10^3/ul (0.8-2.9); LYMPHOCYTES % 21.6 % (15.0-51.0); MEAN CORPUSCULAR HEMOGLOBIN 26.1 pg (29.0-33.0); MEAN CORPUSCULAR HGB CONC 31.8 g/dl (32.0-37.0); MEAN CORPUSCULAR VOLUME 82.2 fl (82.0-101.0); MEAN PLATELET VOLUME 11.5 fl (7.4-10.4); MONOCYTE # 0.8 10^3/ul (0.3-0.9); MONOCYTES % 7.5 % (0.0-11.0); NEUTROPHIL # 7.2 10^3/ul (1.6-7.5); NEUTROPHILS % 67.5 % (39.0-77.0); PLATELET COUNT 324 10^3/UL (140-415); RED BLOOD COUNT 3.71 10^6/ul (4.20-5.40); RED CELL DISTRIBUTION WIDTH 13.8 % (11.5-14.5)
[2018-12-11] MEDS: PANTOPRAZOLE (EC) 40 MG TAB PO (05:52)
[2018-12-11 06:29] LABS: ANION GAP 11 (5-13); BLOOD UREA NITROGEN 14 mg/dl (7-20); CALCIUM 9.3 mg/dl (8.4-10.2); CARBON DIOXIDE 26 mmol/L (21-31); CHLORIDE 101 mmol/L (97-110); CREATININE 0.87 mg/dl (0.44-1.00); Estimated GFR > 60 mL/min (>60); GLUCOSE 168 mg/dl (70-220); SODIUM 138 mmol/L (135-144)
[2018-12-11 06:50] LABS: MAGNESIUM 1.8 mg/dl (1.7-2.5)
[2018-12-11 06:50] LABS: PHOSPHORUS 4.1 mg/dl (2.5-4.9)
[2018-12-11] MEDS: INSULIN ASPART [NOVOLOG] 3 ML PEN SC ×3 (07:58→18:43)
[2018-12-11] MEDS: LISINOPRIL 10 MG TAB PO (09:59)
[2018-12-11] MEDS: LORATADINE 10 MG TAB PO (09:59)
[2018-12-11] MEDS: CLOPIDOGREL 75 MG TAB PO (10:00)
[2018-12-11] MEDS: ASPIRIN 81 MG TAB PO (10:00)
[2018-12-11] MEDS: HEPARIN 5,000 UNIT/1 ML VIAL SC (10:02)
[2018-12-11] MEDS: FLUTICASONE 0.05% 16 GM NAS SPRAY NASAL (10:04)
[2018-12-11 13:04] LABS: ADD UMIC YES; UR ASCORBIC ACID NEGATIVE (NEGATIVE); UR BACTERIA FEW /HPF (NONE SEEN); UR BILIRUBIN (Dip) NEGATIVE (NEGATIVE); UR BLOOD (Dip) 3+ mg/dL (NEGATIVE); UR CLARITY CLEAR (CLEAR); UR COLOR STRAW (YELLOW); UR GLUCOSE (Dip) 1+ mg/dL (NEGATIVE); UR KETONES (Dip) NEGATIVE (NEGATIVE); UR LEUKOCYTE ESTERASE (Dip) 1+ Leu/ul (NEGATIVE); UR NITRITE (Dip) NEGATIVE (NEGATIVE); UR RBC 0 /HPF (0-5); UR SPECIFIC GRAVITY (Dip) 1.004 (1.003-1.030); UR TOTAL PROTEIN (Dip) NEGATIVE (NEGATIVE); UR UROBILINOGEN (Dip) NEGATIVE (NEGATIVE); UR WBC 24 /HPF (0-5)
[2018-12-11] MEDS ORDERED: CIPROFLOXACIN 500 MG TAB PO (14:00)
[2018-12-11] MEDS: CIPROFLOXACIN 500 MG TAB PO (14:27)
== END 2018-12-11 18:50 | disposition home or self-care (01) ==
LOC: E/R 21:15 → TEL 23:07 → ICU 12-10 10:15
DX: I25.110 Atherosclerotic heart disease of native coronary artery with unstable angina pectoris (principal); I10 Essential (primary) hypertension; E78.5 Hyperlipidemia, unspecified; E11.9 Type 2 diabetes mellitus without complications; E03.9 Hypothyroidism, unspecified; Z79.4 Long term (current) use of insulin; Z79.82 Long term (current) use of aspirin; Z79.02 Long term (current) use of antithrombotics/antiplatelets
CPT/HCPCS: 36415; 71045; 80048; 80061; 81001; 82550; 82553; 82962; 83036; 83735; 84100; 84439; 84443; 84484; 85025; 85610; 85730; 87081; 92933; 93005; 93454; 99217; 99285-25; G0378

== ENCOUNTER 2019-02-24 05:44 | Emergency (ER) | payer OTHER | END 2019-02-24 06:38 | disposition home or self-care (01) | LOC: FTE 05:44 | DX: R05 Cough (principal); I10 Essential (primary) hypertension; I25.10 Atherosclerotic heart disease of native coronary artery without angina pectoris; E11.9 Type 2 diabetes mellitus without complications; Z79.4 Long term (current) use of insulin; Z79.82 Long term (current) use of aspirin | CPT/HCPCS: 99283; Z7502 ==